=== PATIENT | male | born 1990 | race Caucasian/White ===

== ENCOUNTER 2023-07-23 06:10 | Day surgery (SDC) | payer BC, SELFPAY ==
[2023-07-23] MEDS: LACTATED RINGERS 1000 ML 1,000 ML 100 ML IV (06:15)
[2023-07-23] MEDS: SODIUM CHLORIDE 0.9 % (FLUSH) 10 ML SYRINGE IVF (06:33)
[2023-07-23 06:34] VITALS: BP 130/90; PULSE 76; RESP 16; TEMP 36.5; O2SAT 98; BMI 34.2
--- NOTE | 2023-07-23 07:14 | W.PM.H&PU ---
History & Physical Update History & Physical Update H&P Reviewed and patient assessed: No changes noted
--- NOTE | 2023-07-23 07:15 | PM.GSPRC ---
Operative Note Date of procedure: 07/23/23 Pre-op diagnosis: 1. Desire for sterilization. Post-op diagnosis: Same Type of Procedure: 1. Vasectomy. Indications: 32-year-old male was seen in clinic for evaluation for vasectomy. Patient had children and desires permanent method of contraception. Patient was very anxious about the procedure and requested this procedure done under deep sedation. On clinical exam patient had no evidence of bilateral inguinal hernias. Given patient's desire for sterilization and his anxiety about the procedure, vasectomy under MAC anesthesia was recommended. The procedure was discussed in detail. The risks associated procedure including infection, bleeding, and sperm granuloma were all discussed with the patient, and he agreed to proceed. Procedure Description: After discussing the risks and benefits of the procedure, the patient signed informed consent.? The operative site was marked and the patient was brought to the operating room and placed on the operating table in supine position.? Care was taken to pad the patient's pressure points.?? The patient was then sedated by anesthesia.?? The operative site was then prepped and draped in the usual sterile fashion.? A time-out was then performed. I first started on the right side. The right vas deferens was located in the scrotum.The vas was grasped with my fingers. 1% Lidocaine was injected at the site of surgical incision and around the vas deferens. The right scrotal incision was made with a scalpel. Soft tissues were dissected with a fine dissecting clamp. The vas deferens was clamped with a ring clamp. Fibrous tissue encasing the vas was peeled off bluntly until it was clear. Clips were placed on the proximal and distal ends of the vas deferens and 1 cm segment was excised. This segment was sent to pathology as the right vas deferens. Minimal oozing was seen from a vein adjacent to vas deferens and that was controlled with vascular clips. I then proceeded on the left side. The left vas deferens was located in the scrotum. The vas was grasped with my fingers. 1% Lidocaine was injected at the site of surgical incision and around the vas deferens. The left scrotal incision was made with a scalpel. Soft tissues were dissected with a fine dissecting clamp. The vas deferens was clamped with a ring clamp. Fibrous tissue encasing the vas was peeled off bluntly until it was clear. Clips were placed on the proximal and distal ends of the vas deferens and 1 cm segment was excised. This segment was sent to pathology as the left vas deferens. Minimal oozing was seen from a vein adjacent to vas deferens and that was controlled with vascular clips. Bilateral incisions were left open. Sterile gauze and Neosporin were placed over the incisions and patient was assisted in putting on his underwear. Patient tolerated procedure well. All counts were correct in the end of the case. Patient was transferred to same-day surgery in stable condition. Anesthesia: MAC and local Surgeon: Aby Kay MD Estimated blood loss (mL): 2 Additional Specimen Information: 1. Right vas deferens. 2. Left vas deferens. Condition: stable Disposition: same day
[2023-07-23] MEDS: BUPIVACAINE 0.25% 30 ML INJECTION (07:37)
--- NOTE | 2023-07-23 07:37 | W.ANESCHARGE ---
Anesthesia Charges Start Date/Time Anesthesia Start Date: 07/23/23 Anesthesia Start Time: 07:24 Stop Date/Time Anesthesia Stop Date: 07/23/23 Anesthesia Stop Time: 07:53
[2023-07-23] MEDS: BACITRACIN OINTMENT BULK TUBE 1 APPLIC TOPICAL (07:43)
[2023-07-23 07:50] VITALS: BP 109/71; PULSE 85; RESP 16; TEMP 36.6; O2SAT 96
[2023-07-23 08:00] VITALS: BP 110/75; PULSE 80; RESP 16; O2SAT 97
[2023-07-23 08:15] VITALS: BP 112/72; PULSE 82; RESP 16; O2SAT 97
--- NOTE | 2023-07-23 09:42 | W.ANESCHARGE ---
Anesthesia Charges Start Date/Time Anesthesia Start Date: 07/23/23 Anesthesia Start Time: 07:24 Stop Date/Time Anesthesia Stop Date: 07/23/23 Anesthesia Stop Time: 07:53
== END 2023-07-23 08:31 | disposition home or self-care (01) ==
LOC: OR 06:11
PROVIDERS: Visit Provider Surgery
PROC: (CPT 55250; principal; 2023-07-23 07:30)
DX: Z30.2 Encounter for sterilization (principal)
CPT/HCPCS: 55250; 00921; 88302; J0665; J1100; J2250; J2405; J2704; J3010; J7120

== ENCOUNTER 2024-01-30 03:28 | Emergency (ER) | payer BC, SELFPAY ==
[2024-01-30 03:31] VITALS: BP 137/86; PULSE 55; RESP 16; TEMP 36.1; O2SAT 99; BMI 32.7
--- NOTE | 2024-01-30 03:56 | CRLHL7_ITS ---
For Patients: As a result of the Century Cures Act, medical imaging exams and procedure reports are released immediately into your electronic medical record. You may view this report before your referring provider. If you have questions, please contact your health care provider. INDICATION: LOWER ABD PAIN, SUSPECT DIVERTICULITIS TECHNIQUE: CT abdomen and pelvis with 100 cc Isovue 370 IV contrast. COMPARISON: None. FINDINGS: The liver is normal in size, shape and attenuation. Gallbladder and biliary tree are normal. The spleen, adrenal glands and pancreas are within normal limits. The kidneys are unremarkable. Mildly dilated fluid-filled loops of small bowel throughout the abdomen which are nonspecific but may indicate infectious/inflammatory enteritis. No transition point to suggest obstruction. Minimal sigmoid diverticulosis without evidence of diverticulitis. Unremarkable appendix. No significant free fluid and no free air. Pelvic organs are unremarkable. Passive bibasilar atelectasis. IMPRESSION: 1. Mildly dilated fluid-filled loops of small bowel throughout the abdomen which are nonspecific but may indicate infectious/inflammatory enteritis. 2. Minimal sigmoid diverticulosis without evidence of diverticulitis. Please note that all CT scans at this facility use dose modulation, iterative reconstruction, and/or weight-based dosing when appropriate to reduce radiation dose to as low as reasonably achievable. Dictated by Bayron Caballero MD @ 01/30/2024 4:52:02 AM (Electronically Signed)
--- NOTE | 2024-01-30 03:57 | ED.GENADULT ---
HPI - General Adult General Chief complaint: Abdominal Pain Stated complaint: abdominal pain Time Seen by Provider: 01/30/24 03:43 Source: patient Mode of arrival: ambulatory Limitations: no limitations History of Present Illness HPI narrative: 33-year-old male presents the emergency department for evaluation of abdominal pain that started approximately 8 hours ago. Pain is located in the lower abdomen, radiates down to the scrotum somewhat. He is not a great descriptor. Pain constant and achy. Last bowel movement was just prior to the pain starting, slightly looser than normal but otherwise unremarkable. Certainly no watery stools or blood. He has not had any nausea or vomiting. He reports that he tried to induce vomiting and was unsuccessful but this also did not improve his symptoms in any way. He tried taking aspirin at 1:00 a.m. with no significant improvement in symptoms. Did not try Tylenol, ibuprofen or any type of GI medication. No pain in the upper abdomen, no postprandial symptoms. No recent dietary changes, travel or antibiotic use. Reports that he had a vasectomy 4 months ago, uncomplicated. No dysuria or hematuria. No flank pain, back pain or prior abdominal surgeries. No prior history of similar symptoms. Past medical history notable for ADHD per his report. His only home medication is Adderall. Nonsmoker, denies any other long-term health problems, no prior abdominal surgeries. ROS is notable for the GI symptoms only, otherwise denies times 12 systems. Related Data Home Medications ?Medication ?Instructions ?Recorded ?Confirmed dextroamphetamine-amphetamine 30 30 mg PO BID 07/17/23 07/23/23 mg tablet (Adderall) Allergies Allergy/AdvReac Type Severity Reaction Status Date / Time No Known Allergies Allergy Unknown Verified 01/30/24 04:43 [facility] Surgical History H/O shoulder surgery ?Z98.890 - Other specified postprocedural states (ICD-10) Social History Narrative: Denies smoking, occasionally drinks alcohol. He works as a sales project administrator. Rarely does heavy lifting. Smoking Status: Never smoker How often do you have a drink containing alcohol: 2-4 times a month How many standard drinks containing alcohol do you have on a typical day: 3 or 4 AUDIT-C Alcohol total score: 3 Non-prescribed substance use: denies use Caffeine: Yes Exam Const: Vital Signs, click to edit/add: Vital Signs - 24 hr 01/30/24 03:31 Temperature 97.0 F L Pulse Rate [Left P ulse Oximeter] 55 L Respiratory Rate 16 Blood Pressure [Ri ght Upper Arm] 137/86 Pulse Oximetry 99 Oxygen Delivery Me thod Room Air Documenting provider has reviewed patient's vital signs: yes Common normals: no apparent distress General appearance: well kempt HENMT: Common normals: normocephalic and oropharynx normal Head and scalp: normocephalic Mouth: oral and palatal mucosa normal Eye: Common normals: conjunctivae normal General eye: normal appearance of both eyes Conjunctiva: conjunctiva(e) normal Neck & C-Spine: General: normal visual inspection Resp: Common normals: normal respiratory effort, no use of accessory muscles and clear to auscultation bilaterally Effort & inspection: able to speak in complete sentences Auscultation: clear to auscultation bilaterally Cardio: Common normals: regular rate, regular rhythm, S1 normal heart sound, S2 normal heart sound and no murmurs Rate: regular rate Rhythm: regular rhythm Heart sounds: S1 normal and S2 normal GI: Common normals: Normal to inspection, nondistended, normoactive bowel sounds present, soft to palpation, no hepatosplenomegaly and no masses Palpation: soft and no hepatosplenomegaly Other: Mildly obese, cannot really feel the edges of the organs well. Bili does not have any rebound tenderness or guarding, reports mild tenderness to palpation of lower abdomen only. No mass. : Common normals: no CVA tenderness Bladder/kidney exam: no CVA tenderness Other: Scrotum normal in appearance as his penis. Testicles smooth, no lumps or mass, normal position, no swelling. Inguinal canal without signs of hernia bilaterally on Valsalva. Back & Pelvis: Common normals: no CVA tenderness Extremity: Common normals: normal to inspection, normal capillary refill and no pedal edema Neuro: Speech: speech normal Gait (neuro): normal gait Motor exam: strength 5/5 throughout and no movement abnormalities noted Psych: Appearance: well kempt Attitude: engaged Activity/motor behavior: appropriate eye contact Insight: fair Judgement: fair Skin: Common normals: no rashes or lesions noted General skin exam: no rashes or lesions noted Course Course ED Course: 33-year-old male with lower mid abdominal pain. Differential diagnosis including urinary tract infection, ureterolithiasis, colitis, diverticulitis, gastroenteritis, obstruction, volvulus, pancreatitis. Less likely gallbladder disease or musculoskeletal etiology. Suspect enteritis versus diverticulitis. Recommend IV Toradol for pain, CT of the abdomen and pelvis, typical labs. Await findings. Reevaluation(s) Time of Reevaluation #1: 04:59 Reevaluation #1: CT showing mild enteritis only, no diverticulitis, appendicitis. All labs are also completely normal. No sign of leukocytosis, elevated CRP or organ dysfunction. Counseled on findings and home management. He does not think he can manage with his current level of pain. He is not showing any signs of tachycardia or other distress. Will give 1 [place] tablet with an additional dose of Tylenol and discharged home on oral Tylenol and ibuprofen. Alarm symptoms such as bloody diarrhea, severe weakness, fevers reviewed as indications to come back to the emergency department. Follow-up with primary care for persistent symptoms not improving in 5 days, slowly advance diet as tolerate. No work restrictions Vital Signs Vital signs: Initial Vital Signs Temperature 97.0 F L 01/30/24 03:31 Temperature Source Temporal Artery Scan 01/30/24 03:31 Pulse Rate 55 L 01/30/24 03:31 Pulse Rhythm Regular 01/30/24 03:31 Respiratory Rate 16 01/30/24 03:31 Blood Pressure 137/86 01/30/24 03:31 Blood Pressure Mean 103 01/30/24 03:31 Blood Pressure Position Sitting 01/30/24 03:31 Pulse Oximetry 99 01/30/24 03:31 Oxygen Delivery Method Room Air 01/30/24 03:31 Vital Signs Temperature 97.0 F L 01/30/24 03:31 Pulse Rate 55 L 01/30/24 03:31 Respiratory Rate 16 01/30/24 03:31 Blood Pressure 137/86 01/30/24 03:31 Pulse Oximetry 99 01/30/24 03:31 Oxygen Delivery Method Room Air 01/30/24 03:31 Temperature 97.0 F L 01/30/24 03:31 Pulse Rate 55 L 01/30/24 03:31 Respiratory Rate 16 01/30/24 03:31 Blood Pressure 137/86 01/30/24 03:31 Pulse Oximetry 99 01/30/24 03:31 Oxygen Delivery Method Room Air 01/30/24 03:31 Medications Administered Medications: Discontinued Medications Generic Name Dose Route Start Last Admin Trade Name Heriq PRN Reason Stop Dose Admin Sodium Chloride 1,000 mls @ 1,000 mls/hr 01/30/24 03:57 01/30/24 04:33 0.9 % Sodium Chloride 1000 Ml IV 01/30/24 04:56 1,000 mls/hr .Q1H THOMAS Administration Ketorolac Tromethamine 15 mg 01/30/24 03:56 01/30/24 04:33 Ketorolac 15 Mg/Ml Inj IVP 01/30/24 03:57 15 mg ONCE ONE Administration Medical Decision Making Lab Data Lab results reviewed: Yes I reviewed the patient's lab results Lab results narrative: All reassuring Labs: Lab Results 01/30/24 01/30/24 Range/Units 04:05 04:45 WBC 10.17 (4.50-11.00) K/uL RBC 5.64 (4.30-5.90) m/uL Hgb 16.7 (13.5-17.5) gm/dL Hct 49.0 (37.0-53.0) % MCV 87 (80-100) fL MCH 30 (26-34) pg MCHC 34 (32-36) gm/dL RDW Coeff of [place] 12.4 (11.5-15.5) % Plt Count 272 (140-440) K/uL Neut % (Auto) 74.0 H (42.0-72.0) % Lymph % (Auto) 17.2 L (20-44) % [place] % (Auto) 7.2 (0.0-11.0) % Eos % (Auto) 1.0 (0.0-7.0) % Baso % (Auto) 0.3 (0.0-3.0) % Neut # (Auto) 7.50 H (1.7-7.0) K/uL Lymph # (Auto) 1.70 (0.90-2.90) K/uL [place] # (Auto) 0.70 (0.00-0.90) K/UL Eos # (Auto) 0.10 (0.00-0.50) K/uL Baso # (Auto) 0.03 (0.00-0.30) K/uL Abs Immat Gran (auto) 0.03 (0.00-0.30) K/uL Imm/Tot Granulo (auto) 0.3 % Sodium 138 (135-149) mmol/L Potassium 3.9 (3.6-5.1) mmol/L Chloride 106 (96-114) mmol/L Carbon Dioxide 20 (20-32) mmol/L Anion Gap 12 (7-15) mEq/L BUN 16 (5-24) mg/dL Creatinine 0.7 (0.5-1.5) mg/dL Estimated Creat Clear 147.93 Estimated GFR 126 ml/min Glucose 118 H (60-115) mg/dL Lactate 1.7 (0.5-1.9) mmol/L Calcium 9.2 (8.4-10.6) mg/dL Total Bilirubin 0.4 (0.1-1.5) mg/dL AST 24 (12-35) U/L ALT 36 (4-50) U/L Alkaline Phosphatase 92 (40-150) U/L C-Reactive Protein < 0.5 L (0.5-1.0) mg/dL Total Protein 7.4 (6.0-8.3) g/dL Albumin 4.9 (3.3-5.0) g/dL Lipase 45 (23-300) U/L Urine Color Yellow (Yellow) Urine Appearance Clear (Clear) Urine pH 6.5 (5.0-8.5) Ur Specific [place] 1.015 (1.000-1.030) Urine Protein Negative (Negative) Urine Glucose (UA) Negative (Negative) Urine Ketones Negative (Negative) Urine Blood Negative (Negative) Urine Nitrite Negative (Negative) Urine Bilirubin Negative (Negative) Urine Urobilinogen 0.2 (0.2-1.0) Ur Leukocyte Esterase Negative (Negative) Imaging Data CT scan - abdomen: Attestation: I have reviewed the pertinent imaging results. My impression: Mild fluid-filled small bowel loops but no obstruction, perforation, diverticulitis, kidney stones or other signs of problems Radiologist's impression: IMPRESSION: 1. Mildly dilated fluid-filled loops of small bowel throughout the abdomen which are nonspecific but may indicate infectious/inflammatory enteritis. 2. Minimal sigmoid diverticulosis without evidence of diverticulitis. Discharge Plan Discharge Clinical Impression: Enteritis Patient Disposition: Home w/ Parent or Adult Condition: Stable Instructions: Enteritis (ED) Additional Instructions: As we discussed, your labs all look great. There are no signs of infection, inflammation, organ dysfunction. Your CT clearly shows some very mild enteritis which is the medical term for the ?stomach flu?. Often this causes abdominal cramping and then tends to progress into loose stools and sometimes watery diarrhea. Some people also developed nausea and vomiting. For pain, I recommend Tylenol 1000 mg every 6 hours and ibuprofen 600 mg every 6 hours. You can alternate between the 2 every 3 hours or so. If he develops diarrhea, please use [id number] Imodium per the package instructions. If you start having severe bloody diarrhea, high fever or other significant signs of worsening like weakness to the point where you cannot ambulate, you should come back to emergency room. Most symptoms resolved in 48-72 hours. You may return to work with no restrictions. Activity Level: No Restrictions Discharge Diet: Regular Prescriptions: No Action dextroamphetamine-amphetamine [Adderall] 30 mg tablet 30 mg PO BID Rx Instructions: administer doses at least 4-6 hours apart Follow Up/Referrals: Provider,Not a Local [Primary Care Provider] - Stand Alone Forms: [place] Info Instructions
[2024-01-30 04:14] LABS: Lactate* 1.7 mmol/L (0.5-1.9)
[2024-01-30 04:15] LABS: Basophils Absolute Auto 0.03 K/uL (0.00-0.30); Basophils Percent Auto 0.3 % (0.0-3.0); Hemoglobin* 16.7 gm/dL (13.5-17.5); Immature Granulocytes Abs Auto 0.03 K/uL (0.00-0.30); Immature Granulocytes Pct Auto 0.3 %; Lymphocytes Percent Auto 17.2 % (20-44); Mean Corpuscular HGB Conc 34 gm/dL (32-36); Mean Corpuscular Hemoglobin 30 pg (26-34); Mean Corpuscular Volume 87 fL (80-100); Monocytes Percent Auto 7.2 % (0.0-11.0); Platelet Count* 272 K/uL (140-440); RDW Coefficient of Variation % 12.4 % (11.5-15.5); Red Blood Count 5.64 m/uL (4.30-5.90); White Blood Count* 10.17 K/uL (4.50-11.00)
[2024-01-30 04:18] LABS: Slide Review Reflex No
[2024-01-30 04:29] LABS: Albumin* 4.9 g/dL (3.3-5.0); Chloride* 106 mmol/L (96-114); Sodium* 138 mmol/L (135-149)
[2024-01-30 04:30] LABS: Potassium* 3.9 mmol/L (3.6-5.1)
[2024-01-30 04:31] LABS: Creatinine* 0.7 mg/dL (0.5-1.5); Est. Creatinine Clearance* 147.93; Estimated Glomerular Filt Rate 126 ml/min
[2024-01-30 04:32] LABS: Alanine Aminotransferase* 36 U/L (4-50); Alkaline Phosphatase* 92 U/L (40-150); Anion Gap 12 mEq/L (7-15); Aspartate Amino Transferase* 24 U/L (12-35); Bilirubin Total* 0.4 mg/dL (0.1-1.5); Blood Urea Nitrogen* 16 mg/dL (5-24); Carbon Dioxide* 20 mmol/L (20-32); Lipase* 45 U/L (23-300); Total Protein* 7.4 g/dL (6.0-8.3)
[2024-01-30 04:33] LABS: Calcium* 9.2 mg/dL (8.4-10.6); Glucose* 118 mg/dL (60-115)
[2024-01-30] MEDS: 0.9 % SODIUM CHLORIDE 1000 ml 1,000 ML IV (04:33)
[2024-01-30] MEDS: KETOROLAC 15 MG/ML inj IVP (04:33)
--- OUTSIDE RECORDS SUMMARY | 2024-01-30 04:35 | XMS_ITS | Referral Summary ---
Author Organization [facility] Address [address] [place] [id number] Care Team Providers Care Vending Supervisor Name Role Phone No Ref-Primary, Physician Primary Care Provider Star Barreto MD Unavailable Allergies No known active allergies Medications Medication Sig Dispensed Refills Start Date End Date Status amphetamine-dextroamphe tamine (ADDERALL) 30 MG tablet Take 30 mg by mouth 2 times daily Active Social History Tobacco Use Types Packs/Day Years Used Date Smoking Tobacco: Never Smokeless Tobacco: Never Tobacco Cessation:Counseling Given: Yes PHQ-2 Answer Date Recorded PHQ-2 Score 0 07/24/2022 Adolescent Education Answer Date Record ed Getting School Help Needed Not on file 04/27 Sex and Gender Information Value Date Recorded Sex Assigned at Not on file Gender Identity Not on file Sexual Orientation Not on file Last Filed Vital Signs Vital Sign Reading Time Taken Comments Blood Pressure 112/68 09/03/2022 4:36 PM [employer] Pulse 97 07/24/2022 8:35 AM [employer] Temperature - - Respiratory Rate - - Oxygen Saturation 100% 07/24/2022 8:35 AM [employer] Inhaled Oxygen Concentration - - Weight 98.6 kg (217 lb 7 oz) 07/24/2022 8:35 AM [employer] Height 172.7 cm (5' 8) 07/24/2022 8:35 AM [employer] Body Mass Index 33.06 07/24/2022 8:35 AM [employer] Plan of Treatment Not on file Care Teams Vending Supervisor Relationship Specialty Start Date End Date No Ref-Primary, Physician PCP - General 07/10/22 Star Barreto MD [address] [place] [address] [id number] Assigned Musculoskeletal Provider 09/15/22
--- OUTSIDE RECORDS SUMMARY | 2024-01-30 04:35 | XMS_ITS | Clinical Summary ---
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 60 Tablet 12/10/2023 01/06/2024 Discontinued (Reorder (E-cancel not sent)) Active Problems Problem Noted Date Diagnosed Date Controlled substance agreement signed 05/10/2015 ATTENTION DEFICIT HYPERACTIVITY DISORDER, INATTE NTIVE TYPE 05/10/2015 Anxiety state, unspecified 11/04/2012 Closed fracture of shaft of clavicle 08/09/2008 Circadian rhythm sleep disorder, delayed sleep p hase type 04/13/2008 Flat foot(734) 04/10/2005 Resolved Problems Problem Noted Date Diagnosed Date Resolved Date Molluscum contagiosum 11/04/20062008 LT. CONTUSION SHOULDER REGION 03/19/2006 01/11/2009 Pain in joint, shoulder region 10/22/2005 01/11/2009 ATTENTION DEFICIT HYPERACTIV ITY DISORDER, INATTENTIVE TYPE 04/10/2005 05/10/2015 Overview: 7/9 Inattentive Criteria, lacking problems paying attention to details and disorganization and 5/9 Hyperactive-Impulsive Criteria lacking climbing, being on the go,blurting out answers and problems waiting for turns. Encounters Date Type Department Care Team Description 01/06/2024 Refill [facility] [id number] [phone] Corby Love MD Refill Request (Amphetamine-Dextroamphe tamine (AdderalL) 30 mg tablet) 12/10/2023 Refill [facility] [address] [phone] Corby Love MD Refill Request (adderall) 11/08/2023 Refill [facility] [address] [phone] Corby Love MD Refill Request (Amphetamine-Dextroamphe tamine (AdderalL) 30 mg tablet) from Last 3 Months Immunizations Name Administration Dates Next Due DTP 03/08/1998, 4,03/23/1993,01/20,1992 HIB PRP-OMP (PedvaxHIB) 01/04/1994,03/23,01/20/1993,11/18 Hepatitis B (Peds) 07/24/1993,1992, 993 Hepatitis B, Unspecified 07/24/1993,1992,0 1992 Hib Conjugate, Unspecified 01/04/1994 Influenza A (H1N1), Inactivated 08/24/2009 Influenza A (H1N1), Inactiva derik (Age >=3 Years) 08/24/2009 Influenza, IIV3 (Age >=3 years) 06/19/2006 MMR 03/08/1998,01/04/1994 Meningococcal Vaccine 04/10/2005 Meningococcal Vaccine (Menactra) 04/10/2005 Oral Polio Vaccine 03/08/1998, 4,01/20/1993,11/18 Polio Virus, Unspecified 03/08/1998,09/1993,01/20/1993,11/18 Td (Age >=7 Years) 03/15/2004 Tdap 12/29/2014 Varicella Vaccine 06/19/2006,12/26/1994 Family History Medical History Relation Name Comments Allergies Brother 3 Diabetes Maternal Aunt Heart Disease Maternal Grandmother Diabetes Maternal Uncle 1 Heart Disease Maternal Uncle 2 Cancer Other niece with medu lloblastoma/male breast in father's family. Alcohol/Drug No Family History Anesthesia Problem No Family History Arthritis No Family History Blood Disease No Family History Cancer-breast No Family History Cancer-colon No Family History Cancer-prostate No Family History Hyperlipidemia No Family History Hypertension No Family History Psychiatric illness No Family History Seizures No Family History Stroke No Family History Thyroid Disease No Family History Relation Name Status Comments Brother 1 Miguel Allen Alive 02[birth year]14/71 Brother 2 Leo Allen Alive 10/16/76 Brother 3 Father Diana Alive Maternal Aunt Maternal Grandmother Maternal Uncle 1 Maternal Uncle 2 Mother Radha Alive [phone] [place] Other Social History Tobacco Use Types Packs/Day Years Used Date Smoking Tobacco: Former Cigarettes 0.3 3 Smokeless Tobacco: Never Tobacco Cessation:Counseling Given: Yes Comments:No smokers Alcohol Use Standard Drinks/Week Comments Yes 0 (1 standard drink = 0.6 oz pur e alcohol) rare PHQ-2 Answer Date Recorded PHQ-2 TOTAL SCORE 0 11/29/2022 Social Connections Answer Date Recorded Frequency of Communication with Friends and Fami ly Not on file 08/03/2021 Financial Resource Strain Answer Date R ecorded Difficulty of Paying Living Expenses Not on file 08/03/2021 Difficulty of Paying Living Expenses Not on file 08/03/2021 Sex and Gender Information Value Date Recorded Sex Assigned at Not on file Gender Identity Not on file Sexual Orientation Not on file Obstetrics History Last Filed Vital Signs Vital Sign Reading Time Taken Comments Blood Pressure 124/70 11/29/2022 2:39 PM CDT Pulse 84 11/29/2022 2:39 PM CDT Temperature 37.1 ??C (98.8 ??F) 02/08/2016 6:03 PM CD T Respiratory Rate 18 11/29/2022 2:39 PM CDT Oxygen Saturation 98% 11/29/2022 2:39 PM CDT Inhaled Oxygen Concentration - - Weight 98.4 kg (217 lb) 11/29/2022 2:39 PM CDT Height 172.1 cm (5' 7.75) 11/29/2022 2:39 PM CD T Body Mass Index 33.24 11/29/2022 2:39 PM CDT Plan of Treatment Health Maintenance Due Date Last Done Comments HIV for age 15-65 2007 Hepatitis C screening for age 18-79 2010 COVID-19 vaccine series (2022- season) 2023 BMI (ht and wt on same day) for age 18+ 11/30/2023 11/29/2022, 06/07/2021, 12/11/2018, Additional history exists Depression screening for age 12+ 11/30/2023 11/29/2022, 06/09/2021, 06/07/2021, Additional history exists Influenza for age 9-49 04/05/2024 6 (Completed outside of [facility]), 08/24/2009, 08/24/2009, Additional history exists Tetanus booster 12/29/2024 12/29/2014, 03/15/2004 Tdap Completed 12/29/2014 Pneumococcal series for age 6-64 Aged Out No longer eligible based on patient's age to complete this topic Medical Devices Implanted Type Area Manager Leadership Development Device Identifier Shelf Expiration Date Model / Serial / Lot Plate Reconstrt [id number] Hole - [id number] Implanted:Qty: 1 on 01/13/2009 at [facility] Right: Shoulder Smart Balloon [id number]# / / Description:VERIFIED...SK Screw Cortex 3.5x16mm [id number] [employer] - [id number] Implanted:Qty: 2 on 01/13/2009 at [facility] Right: Shoulder Smart Balloon [id number]# / / Description:VERIFIED..SK Screw Cortex 3.5x18mm [id number] [employer] - [id number] Implanted:Qty: 2 on 01/13/2009 at [facility] Right: Shoulder Smart Balloon [id number]# / / Description:VERIFIED...SK Screw Cortex 3.5x20mm [id number] [employer] - [id number] Implanted:Qty: 3 on 01/13/2009 at [facility] Right: Shoulder [email or web address] [id number]# / / Description:VERIFIED...SK Advance Directives * Full Code (Latest Code Status on File) Date Activated Date Inactivated Comments 01/13/2009 12:26 PM 01/13/2009 7:57 PM Care Teams Rn Prior Authorization Relationship Specialty [place] [id number] [address] [phone] PCP - General Family Practice 09/17/12
--- OUTSIDE RECORDS SUMMARY | 2024-01-30 04:35 | XMS_ITS | Clinical Summary ---
Author Organization [facility] Address [address] [place] [id number] Care Team Providers Care Hem Marker Name Role Phone No Ref-Primary, Physician Primary [...] Comments Blood Pressure 112/68 09/03/2022 4:36 PM [facility] Pulse 97 07/24/2022 8:35 AM [facility] Temperature - - Respiratory Rate - - Oxygen Saturation 100% 07/24/2022 8:35 AM [facility] Inhaled Oxygen Concentration - - Weight 98.6 kg (217 lb 7 oz) 07/24/2022 8:35 AM [facility] Height 172.7 cm (5' 8) 07/24/2022 8:35 AM [facility] Body Mass Index 33.06 07/24/2022 8:35 AM [facility] Plan of Treatment Health Maintenance Due Date Last Done Comments ADVANCE CARE PLANNING 1992 ANNUAL REVIEW OF HM ORDERS 1992 HIV SCREENING 2007 HEPATITIS C SCREENING 2010 YEARLY PREVENTIVE VISIT 06/07/2022 06/07/2021 COVID-19 Vaccine ( season) 2023 PHQ-2 (once per calendar year) 2023 07/24/2022 INFLUENZA VACCINE (Season Ended) 2024 08/24/2009, 08/24/2009, 06/19/2006 DTAP/TDAP/TD IMMUNIZATION (7 - Td or Tdap) 12/29/2024 12/29/2014, 03/15/2004, 03/08/1998, Additional history exists HEPATITIS B IMMUNIZATION Completed 993, 07/24/1993, 1992, Additional history exists IPV IMMUNIZATION Completed 03/08/1998, 11/1997, 01/04/1994, Additional history exists MENINGITIS IMMUNIZATION Aged Out 04/10/2005, 04/10 No longer eligible based on patient's age to complete this topic HPV IMMUNIZATION Aged Out No longer e ligible based on patient's age to complete this topic Pneumococcal Vaccine: Pediatrics (0 to 5 Years) and At-Risk Patients (6 to 64 Years) Aged Out No longer eligible based on patient's age to complete this topic RSV MONOCLONAL ANTIBODY Aged Out No l onger eligible based on patient's age to complete this topic Care Teams Hem Marker Relationship Specialty Start Date End Date No Ref-Primary, Physician PCP - General 07/10/22 Star Barreto MD [address] [place] [address] [address] [place] [address] Assigned Musculoskeletal Provider 09/15/22
[2024-01-30 04:36] LABS: C Reactive Protein* < 0.5 mg/dL (0.5-1.0)
[2024-01-30 04:55] LABS: Appearance Urine Clear (Clear); Bilirubin Urine Negative (Negative); Blood Urine Negative (Negative); Color Urine Yellow (Yellow); Glucose Urine Negative (Negative); Ketones Urine Negative (Negative); Leukocyte Esterase Urine Negative (Negative); Nitrite Urine Negative (Negative); Protein Urine Negative (Negative); Specific Gravity Urine 1.015 (1.000-1.030); Urobilinogen Urine 0.2 (0.2-1.0); pH Urine 6.5 (5.0-8.5)
[2024-01-30] MEDS: ACETAMINOPHEN 325 MG TABLET 650 MG PO (05:05)
[2024-01-30] MEDS: HYDROCODONE-ACETAMIN 5-325 MG 1 TAB PO (05:05)
[2024-01-30 05:36] VITALS: BP 136/58; PULSE 62; RESP 16; O2SAT 98
== END 2024-01-30 05:37 | disposition home or self-care (01) ==
PROVIDERS: Emergency Provider Family Medicine
DX: K52.9 Noninfective gastroenteritis and colitis, unspecified (principal)
CPT/HCPCS: 36415; 74177; 80053; 81003; 83605; 83690; 85025; 86140; 96374; 99284; A9270; J1885; J7030; Q9967